=== PATIENT | female | born 1965 | race Caucasian/White ===

== ENCOUNTER 2019-12-15 22:05 | Outpatient (REF) | payer SELFPAY ==
[2019-12-19 21:18] LABS: COVID-19 RT-PCR Result NEGATIVE (Negative)
== END 2019-12-15 22:25 ==
LOC: NCHCN 22:05
PROVIDERS: PCP Family Medicine; Visit Provider Family Medicine
DX: Z11.59 Encounter for screening for other viral diseases (principal)
CPT/HCPCS: U0003

== ENCOUNTER 2020-05-16 18:45 | Outpatient (REF) | payer SELFPAY | END 2020-05-16 18:46 | disposition home or self-care (01) | LOC: NCHCN 18:45 | PROVIDERS: PCP Family Medicine; Visit Provider Family Medicine | DX: R35.0 Frequency of micturition (principal) | CPT/HCPCS: 87077; 87086; 87186 ==

== ENCOUNTER 2022-06-18 11:40 | Outpatient (REF) | payer MEDICAID, SELFPAY ==
--- NOTE | 2022-06-18 10:50 | PAPFT_PTH ---
PATIENT: Mikki Blackman LOC: [facility] U#:[id number] AGE/SX: 56/F ROOM: RE06/18/[address]: Yana Laird V : 1965 BED: DIS: 06/18/2022 SPEC #: [id number] RECD: 06/18/22 17:50 STATUS: KELSEA RELana #: [id number] PRACHI: 06/18/22 10:[address]: Yana Laird V DEPT: [facility] Cytology RECD BY: Judith Olivera Tissues: 1 - CX/ENDOCX FOR PAP SMEARS Procedures: PAP THIN PREP/[facility] Screening HPV DNA PROBE Comments: [id number]
[2022-06-18 17:21] LABS: Calculated LDL 104 mg/dL (<100); Cholesterol 206 mg/dL (<200); Glucose 111 mg/dL (74-106); HDL Cholesterol 95 mg/dL (40-60); Triglyceride 39 mg/dL (<150)
== END 2022-06-18 11:41 | disposition home or self-care (01) ==
LOC: NCHCN 11:40
PROVIDERS: PCP Family Medicine; Visit Provider Family Medicine
DX: Z00.00 Encounter for general adult medical examination without abnormal findings (principal); Z13.1 Encounter for screening for diabetes mellitus; Z13.220 Encounter for screening for lipoid disorders; Z12.4 Encounter for screening for malignant neoplasm of cervix; Z11.51 Encounter for screening for human papillomavirus (HPV)
CPT/HCPCS: 80061; 82947; 88142; 87624

== ENCOUNTER 2022-07-15 00:48 | Outpatient (CLI) | payer MEDICAID, SELFPAY ==
--- NOTE | 2022-07-15 12:00 | DI.MAMMO_ITS ---
Exam(s) MAMMO SCREENING EXAM: MAMMO SCREENING CLINICAL HISTORY: SCREENING, Z12.31 TECHNIQUE: Mammograms were interpreted according to the usual protocol including computer analysis w ith CAD system, tomosynthesis and C-view imaging. COMPARISON: SCREENING [facility] MAMMO W/CAD DIGI from 09/11/2006 DIAGNOSTIC RIGHT MAMMO DIGITAL from 09/20/2006 MG SCREENING [facility] MAMMO W/CAD DIGI from 05/05/2012 FINDINGS: The breasts are composed of scattered fibroglandular densities, Breast Density category B. No suspicious masses or suspicious microcalcifications are seen. No skin thickening or abnormal axillary lymph nodes are seen. There has been no change from prior exams other than the reduction in breast density.. IMPRESSION: BI-RADS Category 1, Negative mammogram Yearly screening mammography is recommended. Breast Density - Category B, scattered fibroglandular densities. A negative radiographic report should not delay biopsy if a dominant or clinically suspicious mass is present. Up to ten percent of cancers are not identified on mammography. A negative report may reinforce clinical impression. Adenosis and dense breasts may obscure an underlying neoplasm. False positive reports average 6 to 10%. Patient will receive a letter notifying them of these results.
== END 2022-07-15 01:08 ==
LOC: DI 00:50
PROVIDERS: PCP Family Medicine; Visit Provider Family Medicine
DX: Z12.31 Encounter for screening mammogram for malignant neoplasm of breast (principal)
CPT/HCPCS: 77063; 77067